=== PATIENT | female | born 1960 | race Caucasian/White ===

== ENCOUNTER 2017-02-17 09:35 | Inpatient (IN) | payer BC ==
[2017-02-14 14:36] LABS: BASOPHILS 0.2 %; BASOPHILS ABSOLUTE 0.02 10/3/uL (0.0-0.16); EOSINOPHILS 0.8 %; EOSINOPHILS ABSOLUTE 0.08 10/3/uL (0.0-0.53); HEMATOCRIT 47.3 % (36.0-48.0); HEMOGLOBIN 15.8 g/dL (12.0-16.0); IMMATURE GRANULOCYTES 0.4 %; IMMATURE GRANULOCYTES ABSOLUTE 0.04 10/3/uL (0.0-0.11); LYMPHOCYTES 16.1 %; MEAN CORPUS HGB CONC 33.4 g/dL (32.0-36.0); MEAN CORPUSCULAR HEMOGLOB 32.6 pg (26.0-34.0); MEAN PLATELET VOLUME 8.9 fL (9.2-13.0); MONOCYTES 4.4 %; MONOCYTES ABSOLUTE 0.46 10/3/uL (0.21-1.20); NEUTROPHILS 78.1 %; NEUTROPHILS ABSOLUTE 8.26 10/3/uL (2.02-8.40); PLATELET COUNT 331 10/3/uL (150-400); RBC DISTRIBUTION WIDTH 14.1 % (12.0-16.0); RED CELL COUNT 4.85 10/6/uL (4.0-5.6); WHITE BLOOD CELLS 10.6 10/3/uL (4.5-10.5)
[2017-02-14 14:38] LABS: MANUAL DIFF NO %; MEAN CORPUSCULAR VOLUME 97.5 fL (80-100)
[2017-02-14 14:50] LABS: PROTIME (NOT ORD) 12.6 SEC (12.0-14.5)
[2017-02-14 14:53] LABS: A/G RATIO 1.1 (0.7-1.9); ALBUMIN 3.7 G/DL (3.5-5.0); ALKALINE PHOSPHATASE 92 U/L (45-117); BUN (BLOOD UREA NITROGEN) 20 MG/DL (6-23); CALCIUM, SERUM 8.9 MG/DL (8.5-10.4); CHLORIDE, SERUM 107 MMOL/L (96-112); CO2 (CARBON DIOXIDE) 30 MMOL/L (24-34); CREATININE 0.78 MG/DL (0.55-1.02); GFR AFRICAN AMERICAN 97 ML/MIN (>=60); GFR NON AFRICAN AMERICAN 84 ML/MIN (>=60); GLOBULIN 3.3 G/DL (2.5-4.1); GLUCOSE, SERUM 141 MG/DL (60-99); POTASSIUM, SERUM 4.4 MMOL/L (3.5-5.3); SGOT(AST) 13 U/L (5-40); SGPT(ALT) 34 U/L (5-65); SODIUM, SERUM 145 MMOL/L (135-148); TOTAL BILIRUBIN 0.7 MG/DL (0-1.2)
[2017-02-14 17:21] LABS: ASCORBIC ACID (UR NOT ORDER) NEG (NEG); BILIRUBIN, URINE NEGATIVE (NEG); KETONE, URINE NEGATIVE (NEG); LEUKOCYTE ESTERASE(NOT OR TRACE (NEG); WBC (NOT ORDERED) (RFLEX) 13 (0-5)
--- NOTE | ~2017-02-17 | OP ---
Record Of Operation [facility] [address] [place]. [address] NAME: [address] : 56 STATUS : ADM IN PAT#: [id number] AGE: 56 ADM/REG DATE : 02/17/17 MR#: [id number] REPORT SERV DATE: 02/17/17 DICTATED BY: DANO ESPINAL DATE: 02/17/17 REPORT STATUS : Draft TRANSCRIBED BY: MODL DATE: 02/17/17 DATE OF PROCEDURE: 02/17/2017 PREOPERATIVE DIAGNOSIS: Severe right knee degenerative joint disease. POSTOPERATIVE DIAGNOSIS: Severe right knee degenerative joint disease. OPERATION: Right posterior stabilized total knee replacement, cemented. SIDE: Right. SIZE: See chart. ANESTHESIA: See chart. ESTIMATED BLOOD LOSS: About 10 mL. TOURNIQUET TIME: Approximately 1 hour and 10 minutes. COMPLICATIONS: None. SPECIMENS: Articular surfaces. PROCEDURE: The patient was appropriately identified and marked. The operative side agreed with the consent form and it was checked by all members of the surgical team. The patient was taken to the operating room and anesthesia was induced per the anesthesiologist. The patient was carefully transferred to the operating table without incident. The patient received appropriate prophylactic antibiotics and a Metz catheter was placed in the standard sterile technique. The patient was then carefully positioned, padded, prepped and draped in the normal sterile fashion. The operative leg had been appropriately identified and checked by all members of the operating team against the consent form and found to be the correct limb. The patient's lower extremity was then exsanguinated with an Steffen wrap and a tourniquet was inflated to 350 mm/Hg. Sharp dissection was carried out through a straight midline longitudinal incision and electrocautery through the fat. Sharp quad splitting approach was carried out between about the medial 10 percent of the tendon and the lateral 90 percent of the tendon and down around the medial aspect of the patella and then 1 cm medial to the tibial tubercle. The patella was carefully everted and the posterior fat pad was excised and gentle MCL elevation was carried out off the proximal medial tibia subperiosteally. IM guide was placed in the distal femur after using the appropriate drill. The distal femoral cutting guide was held with 2 pins and the distal cut made. Meniscal fragments and the ACL and the PCL were excised with electrocautery, carefully staying anterior to the posterior fat pad. The proximal tibial alignment guide was set appropriately and the proximal tibial cut made. Spacer block verified full extension with excellent mediolateral balance. Sizing guide was used to place 2 drill holes in the distal femur and the four-in-one cutting block was then placed, impacted and checked Record Of Operation [facility] [address] [place]. [address] NAME: [address] : 56 STATUS : ADM IN PAT#: [id number] AGE: 56 ADM/REG DATE : 02/17/17 MR#: [id number] REPORT SERV DATE: 02/17/17 DICTATED BY: DANO ESPIANL DATE: 02/17/17 REPORT STATUS : Draft TRANSCRIBED BY: MODSandra DATE: 02/17/17 to be sure it would not notch with an renetta wing and it was held with 2 pins. The anterior cut, posterior cut, anterior chamfer and posterior chamfer cuts were made. The pins were removed and the block was removed. A posterior release was carried out with a curved 3/4 inch osteotome staying right on the bone posteriorly. The box-cut guide was then placed, impacted and held with 2 pins and a reciprocating saw was used to cut out the box. With the trial components in place, there was excellent medial/lateral balance. The patella was then measured with a caliper, cut first with an oscillating saw and then reamed with a patella reamer. With the trial patella in place, there was excellent patellar tracking. Rotation was marked on the tibia and the tibia prepared with a drill and stamp chisel. All surfaces were then copiously irrigated with pulsatile lavage, carefully dried and then vacuum-mixed cement was pressurized with a cement gun in a doughy phase. The tibial component was placed, impacted and excess cement was removed. The cement was then pressurized in the femur and placed on the posterior runners of the femoral component, which was placed, impacted and excess cement removed and the knee was brought out into extension on a trial spacer. The cement was then pressurized in the patella. Patellar component was then placed, clamped and excess cement was removed. Once all cement was hardened, the knee was taken through range of motion. Further extruded cement was removed with a small osteotome. Then based on the trial inserts, we decided on the actual insert, which was placed in the standard fashion and held with a locking mechanism. The knee was then copiously irrigated and then closed in a layered fashion over a medium Hemovac drain superolaterally with interrupted #1 in the deep fascia, 2-0 subcutaneous and francheska in the skin. The wounds were dressed sterilely and the tourniquet was deflated. The patient was then awakened and taken to the postanesthesia care unit without incident. All counts were correct at the end of the case. BERHANE/VERONICA Lily Espinal M.D. / [id number] CC: Merle Cantu D.O.
--- NOTE | ~2017-02-17 | DS ---
Discharge Summary [facility] [address] [place]. [address] NAME: [address] : 56 STATUS : DIS IN PAT#: [id number] AGE: 56 ADM/REG DATE : 02/17/17 MR#: [id number] REPORT SERV DATE: 03/01/17 DICTATED BY: DANO ESPINAL DATE: 02/28/17 REPORT STATUS : Draft TRANSCRIBED BY: VERONICA DATE: 02/28/17 Data Collection from hospitalization DISCHARGE DIAGNOSES: 1. Severe right knee degenerative joint disease. 2. Hypertension. 3. Anxiety disorder. 4. Depression. 5. Osteoarthritis. CONSULTATIONS: None. PROCEDURES PERFORMED: Right posterior stabilized total knee replacement, cemented, 02/17/2017. PATHOLOGY: Bone and soft tissue, right knee joint arthroplasty-degenerative joint disease with eburnation. DISCHARGE MEDICATIONS: Lipitor 20 mg at bedtime, BuSpar 30 mg twice a day, CoQ10 100 mg daily, Pristiq 100 mg daily, [place]er 7.5/325 one tablet every four hours as needed, Benicar one tablet daily, Coumadin as instructed, Zofran 4 mg every six hours as needed for nausea. CONDITION AT DISCHARGE: Stable. DISPOSITION: The patient was discharged home on a regular diet with activities as instructed. She would follow up with Quin[facility] Oliver, 02/25/2017. She would follow up at [facility] in [place] for physical therapy and Coumadin lab work, 02/21/2017. HOSPITAL COURSE: This is a 56-year-old female, who had complained of moderate to severe constant right knee pain. The patient had been found to have severe right knee degenerative joint disease. Treatment options were discussed and it was elected to proceed with surgical intervention. She was admitted to the hospital at this time for further evaluation and treatment. Upon admission, she was taken to the operating room, where she underwent the above-mentioned procedure. She tolerated this well and there were no complications. On postop day #1, she was evaluated by Occupational Therapy. She was up sitting in a bedside chair. She did complain of some itching in her right ear and chest. No rash was seen. She denied shortness of breath or throat swelling. On postop day #2, she complained the oxycodone was making her itch. Benadryl had been given the previous evening. She had no complaints of itching at this time. CADE hose were in place. Discharge planning was performed. On 02/20/2017, she said her itching had subsided. No rash was noted. She was in no acute distress. Discharge instructions were given. Due to her improved and stable condition, she was discharged home with the above-stated instructions. Information collected by: Jossy Pinedo I submit the above information as my discharge summary. Discharge Summary [address] [address] NAME: [address] : 56 STATUS : DIS IN PAT#: [id number] AGE: 56 ADM/REG DATE : 02/17/17 MR#: [id number] REPORT SERV DATE: 03/01/17 DICTATED BY: DANO ESPINAL DATE: 02/28/17 REPORT STATUS : Draft TRANSCRIBED BY: VERONICA DATE: 02/28/17 TG/VERONICA Lily Espinal M.D. / [id number] CC: Merle Cantu D.O.
[~2017-02-17 09:35] MED LIST: ATV.5 PO; BENICAR HCT1 TAB PO; BUSPAR30 MG PO; CO Q-10100 MG PO; FORTAMET500 MG PO; LIPITOR20 PO; PRISTIQ50 MG PO; SEVERAL VITAMINS; TRAZ50 PO; ZOCOR40 PO; [UNRECOGNIZED DRUG - OTHER] TL
[2017-02-18 06:19] LABS: INTERNATIONAL NORMAL RATI 1.1 UNITS (-); PROTIME (NOT ORD) 14.5 SEC (12.0-14.5)
[2017-02-18 06:21] LABS: HEMATOCRIT 38.1 % (36.0-48.0); HEMOGLOBIN 12.5 g/dL (12.0-16.0)
[2017-02-18 06:28] LABS: BUN (BLOOD UREA NITROGEN) 18 MG/DL (6-23); CALCIUM, SERUM 8.4 MG/DL (8.5-10.4); CHLORIDE, SERUM 105 MMOL/L (96-112); CO2 (CARBON DIOXIDE) 27 MMOL/L (24-34); CREATININE 0.59 MG/DL (0.55-1.02); GFR AFRICAN AMERICAN 117 ML/MIN (>=60); GFR NON AFRICAN AMERICAN 101 ML/MIN (>=60); GLUCOSE, SERUM 139 MG/DL (60-99); POTASSIUM, SERUM 3.6 MMOL/L (3.5-5.3); SODIUM, SERUM 142 MMOL/L (135-148)
[2017-02-19 05:35] LABS: HEMOGLOBIN 11.6 g/dL (12.0-16.0)
[2017-02-19 05:37] LABS: HEMATOCRIT 34.1 % (36.0-48.0)
[2017-02-19 05:42] LABS: INTERNATIONAL NORMAL RATI 1.5 UNITS (-)
[2017-02-19] MEDS ORDERED: NORCO1 TA2 PO (08:21)
[2017-02-19] MEDS ORDERED: C5 (08:22)
[2017-02-20 03:58] LABS: HEMATOCRIT 33.1 % (36.0-48.0); HEMOGLOBIN 10.9 g/dL (12.0-16.0)
[2017-02-20 04:06] LABS: INTERNATIONAL NORMAL RATI 1.5 UNITS (-); PROTIME (NOT ORD) 17.5 SEC (12.0-14.5)
== END 2017-02-20 16:18 | disposition home or self-care (01) | DRG 470 ==
LOC: SDC/OF 09:35 → PACU 12:45 → 3JRC 14:27
PROVIDERS: Specialist
PROC: 3E0T3CZ (ICD-10-PCS; 2017-02-17)
PROC: 0SRC0J9 Replacement of Right Knee Joint with Synthetic Substitute, Cemented, Open Approach (ICD-10-PCS; principal; 2017-02-17 10:30)
DX: M17.11 Unilateral primary osteoarthritis, right knee (principal); I10 Essential (primary) hypertension; Z79.899 Other long term (current) drug therapy; E78.5 Hyperlipidemia, unspecified; F32.9 Major depressive disorder, single episode, unspecified; Z41.9 Encounter for procedure for purposes other than remedying health state, unspecified
CPT/HCPCS: 71020; 80048; 80053; 81001; 85014; 85018; 85025; 85610; 87641; 88305; 88311; 93005; 97110-GP; 97116-GP; 97150-GP; 97161-GP; 97165-GO; A9270-GY; C1776; J0360; J0690; J1580; J1885; J2250; J2274; J2795; J3010